=== PATIENT | female | born 1940 | race Caucasian/White ===

== ENCOUNTER → 2016-05-06 | Outpatient (REF) | payer MEDICARE, MEDICAID ==
[~2016-05-06] MED LIST: /LOR25TA PEG; /OMEP10CA OR; /ONDA4TA OR; /PREG50CA PEG; /ROPI25TA PEG; ACET-654 GT; ACET500C PEG; ACET65SU PR; ACET65TA PEG; ALBU0.084 INH; ALBU83IN INH; AMBI10TA PEG; AMLO5TAB OR; AMLO5TAB PEG; AMOX1SUS9 GT; ATIV1TAB10 GT; ATROVENT 0.02% INH; BACI50OI TOP; BEN1.4DI TOP; BUSP10TA PO; CIPRO PEG; CITA20TA2 PEG; ESTR1TAB GT; ESTR1TAB PEG; EUCELOT2 TOP; FERR22EL GT; FLUC10TA PEG; FURO20TA2 PEG; GUAI100S7 GT; HALO1TA GT; HYDR-3716 GT; HYDR-3716 PO; HYDR25TA8 OR; IBUP600T PEG; JEVILIQ32 GT; LANS30CA GT; LANSPOW GT; LEVA250T PO; LISI-538 PO; LISI30TA3 OR; LISI40TA PEG; LORA-376 GT; MAGN400T5 GT; MILKSUS PO; MOM30SS GT; MULTCAP PO; MULTLIQ GT; MULTTAB4 PEG; MYCOSTATIN SSP; MYLI40DR PO; NICO21DI4 TD; NICO21PAT EXT; NICOTINE PATCH TOP; NYST50SS PO; NYSTATIN ORAL PO; OMEP20TA7 OR; PRED20TA PO; PRED5SOL2 PO; PREG50CA PO; PRIN20TA3 GT; PROAAER INH; REGLAN LIQ PEG; REQU0.5T GT; ROPI0.25 PO; SERT-141 GT; SIME180C GT; SIME80TA GT; VENTOLIN NEB INH; VICO5TAB PEG; VITA500T88 GT; VITMTA PO; [UNRECOGNIZED DRUG - CODE] OR; [UNRECOGNIZED DRUG - OTHER]; mycostatin SSP
== END ==
LOC: SKLAB7 13:46
PROVIDERS: ATTEND Family Medicine
DX: N39.0 Urinary tract infection, site not specified (principal)

== ENCOUNTER → 2016-05-10 | Outpatient (REF) | payer MEDICARE, MEDICAID ==
[2016-05-10 08:40] LABS: CALCIUM LEVEL 8.4 MG/DL (8.8-10.2); CREATININE FOR GFR 1.26 MG/DL (0.55-1.02); GLOMERULAR FILTRATION RATE 44.2 (>39)
== END ==
LOC: SKLAB7 05-09 12:20
PROVIDERS: ATTEND Family Medicine
DX: Z79.2 Long term (current) use of antibiotics (principal)

== ENCOUNTER → 2016-06-24 | Outpatient (REF) | payer MEDICARE, MEDICAID ==
[~2016-06-24] MED LIST changes: -SERT-141 GT; +SERT50TA GT
[2016-06-24 09:06] LABS: BASO % 0.3 % (0.0-1.0); EOS # 0.6 K/mm3 (0.0-0.50); EOS % 7.7 % (0.0-3.0); LARGE UNSTAINED CELL # 0.1 K/mm3 (0.0-0.4); LARGE UNSTAINED CELL % 1.3 % (0.0-4.0); LYMPH # 0.8 K/mm3 (1.5-4.5); LYMPH % 10.5 % (24.0-44.0); MEAN CORPUSCULAR HEMOGLOBIN 31.1 pg (27.0-33.0); MEAN CORPUSCULAR HGB CONC 32.7 g/dl (32.0-36.5); MONO # 0.5 K/mm3 (0.0-0.8); NEUTROPHILS # 5.3 K/mm3 (1.8-7.7); NEUTROPHILS % 73.2 % (36.0-66.0); PLATELET COUNT, AUTOMATED 227 k/mm3 (150-450); RED CELL DISTRIBUTION WIDTH 12.8 % (11.5-14.5); WHITE BLOOD COUNT 7.2 K/mm3 (4.0-10.0)
[2016-06-24 09:17] LABS: ALBUMIN 3.3 GM/DL (3.2-5.2); ALBUMIN/GLOBULIN RATIO 0.67 (1.00-1.93); ALKALINE PHOSPHATASE 101 U/L (45-117); ALT/SGPT 20 U/L (12-78); ANION GAP 7 MEQ/L (8-16); AST/SGOT 28 U/L (15-37); BILIRUBIN,TOTAL 0.3 MG/DL (0.2-1.0); BLOOD UREA NITROGEN 29 MG/DL (7-18); CALCIUM LEVEL 8.5 MG/DL (8.8-10.2); CARBON DIOXIDE LEVEL 35 MEQ/L (21-32); CHLORIDE LEVEL 95 MEQ/L (98-107); CHOLESTEROL LEVEL 157 MG/DL (<200); CREATININE FOR GFR 0.79 MG/DL (0.55-1.02); GLOMERULAR FILTRATION RATE > 60.0 (>39); GLUCOSE, FASTING 95 MG/DL (83-110); MAGNESIUM LEVEL 2.4 MG/DL (1.8-2.4); PERCENT SATURATION 16.9 % (13.2-37.4); SODIUM LEVEL 137 MEQ/L (136-145); TOTAL IRON BINDING CAPACITY 366 UG/DL (250-450); TOTAL PROTEIN 8.2 GM/DL (6.4-8.2); TRIGLYCERIDES LEVEL 127 MG/DL (<150)
== END ==
LOC: SKLAB7 07:00
PROVIDERS: ATTEND Family Medicine
DX: D64.9 Anemia, unspecified (principal); R63.4 Abnormal weight loss; E83.40 Disorders of magnesium metabolism, unspecified; E03.9 Hypothyroidism, unspecified; G25.81 Restless legs syndrome; F03.90 Unspecified dementia, unspecified severity, without behavioral disturbance, psychotic disturbance, mood disturbance, and anxiety

== ENCOUNTER 2016-07-03 18:58 | Emergency (ER) | payer MEDICARE, MEDICAID ==
[~2016-07-03] VITALS: Ht 165.1 cm; Wt 56.7 kg
--- NOTE | 2016-07-03 19:53 | REP ---
Clinical: Trauma. Comparison: 06/20/2014. Findings: Age-related atrophy with periventricular leukomalacia and microvascular ischemic changes noted. Hicks-white differentiation is maintained. No acute intracranial mass or mass effect. No extra-axial fluid collection identified. The calvarium is intact. There is a left periorbital and facial traumatic swelling and contusion. A subtle nondisplaced fracture involving the left zygomatic arch cannot be excluded. The left orbit appears symmetric and intact/normal. The sinuses are clear without fluid level. A subtle area of intraparenchymal density in the left frontal lobe (image 15) may be artifactual, but subtle intraparenchymal contusion cannot be excluded. Impression: 1. Left facial and periorbital soft tissue swelling and facial contusion. Nondisplaced left zygomatic arch fracture cannot be excluded. Sinuses are clear. 2. Age-related atrophy and microvascular ischemic changes. A very subtle area of high density in the left frontal lobe is identified on a single image only and while this may reflect artifact secondary to technical factors, a subtle intraparenchymal contusion cannot be excluded. Follow-up examination in 6-12 hours may be warranted. Signed by Mk Garcia MD 07/03/2016 07:45 P
--- NOTE | 2016-07-03 19:56 | REP ---
Clinical: Trauma. Technique: Axial images from the skull base to the thoracic inlet with coronal and sagittal re-formations. Comparison: 06/20/2014. Findings: Age-related osteopenia and moderate to advanced multilevel degenerative changes are appreciated including anterior and posterior osteophytosis, endplate sclerosis and disc space narrowing. There is no evidence for acute fracture / compression injury or subluxation. The posterior elements demonstrate uncovertebral hypertrophy. The spinous processes are intact. The paravertebral soft tissues are normal. Tracheostomy identified. Impression: 1. Age-related osteopenia and moderate to advanced multilevel degenerative disc osteophyte complexes. 2. No acute fracture / compression injury or subluxation. Signed by Mk Garcia MD 07/03/2016 07:48 P
--- NOTE | 2016-07-03 20:01 | REP ---
Clinical: Trauma. Technique: Axial images from the mid skull through the mandible with coronal and sagittal re-formations. Findings: Left facial and left periorbital soft tissue swelling with subtle left facial contusion is appreciated. The bilateral orbits including globes and intraconal contents are symmetric and otherwise normal without pathology or trauma/injury. The sinuses are well aerated and clear without fluid level. The mandible is intact and the bilateral temporomandibular joints appear normal. The nasal bones are intact. A subtle nondisplaced left zygomatic arch fracture cannot be excluded although this may reflect old injury. Impression: 1. Left facial and left periorbital soft tissue swelling and subtle left facial contusion. 2. Subtle acute versus old nondisplaced left zygomatic arch fracture. 3. No other fracture or dislocation noted. Signed by Mk Garcia MD 07/03/2016 07:52 P
--- NOTE | 2016-07-03 20:07 | REP ---
Clinical: Trauma. Comparison: 06/18/2015. Findings: Lung gupta demonstrate diffuse chronic interstitial changes with moderate bronchiectasis, lingular and bibasilar fibroatelectatic changes. No pleural effusion or pneumothorax. No significant consolidation/contusion. Mediastinum demonstrates atherosclerotic changes to the coronary arteries and thoracic aorta without significant cardiomegaly. No pericardial effusion. No thoracic aortic aneurysm. Tracheostomy in satisfactory position. No obvious adenopathy. Musculoskeletal structures demonstrate degenerative changes without rib fracture. The thoracic spine demonstrates osteopenia and advanced degenerative changes. There is a compression fracture at T6 with approximately 50% loss of vertebral body height as well as mild compression deformities of T12 and L1 which are all of indeterminate age. Impression: 1. Chronic interstitial changes with bronchiectasis and fibro atelectatic changes. 2. No obvious acute mediastinal or pleuroparenchymal process. 3. The skeletal structures demonstrate osteopenia and degenerative changes. No rib fracture noted. Compression deformities of T6, T12 and L1 are of indeterminate age. Signed by Mk Garcia MD 07/03/2016 07:59 P
[2016-07-03 20:32] LABS: MEAN CORPUSCULAR HEMOGLOBIN 31.2 pg (27.0-33.0); MEAN CORPUSCULAR HGB CONC 31.6 g/dl (32.0-36.5); MEAN CORPUSCULAR VOLUME 98.5 fl (80.0-96.0); PLATELET COUNT, AUTOMATED 225 k/mm3 (150-450); RED CELL DISTRIBUTION WIDTH 13.1 % (11.5-14.5); WHITE BLOOD COUNT 21.2 K/mm3 (4.0-10.0)
[2016-07-03 21:28] LABS: ANION GAP 5 MEQ/L (8-16); BLOOD UREA NITROGEN 33 MG/DL (7-18); CALCIUM LEVEL 8.9 MG/DL (8.8-10.2); CARBON DIOXIDE LEVEL 36 MEQ/L (21-32); CHLORIDE LEVEL 96 MEQ/L (98-107); CREATININE FOR GFR 0.87 MG/DL (0.55-1.02); GLOMERULAR FILTRATION RATE > 60.0 (>39); GLUCOSE, FASTING 75 MG/DL (83-110); SODIUM LEVEL 137 MEQ/L (136-145)
[2016-07-03 21:42] LABS: BANDS 2 % (< 11); BASOPHILS 0 % (0-4); EOSINOPHILS 2 % (0-5); HYPOCHROMASIA 1+
[2016-07-03 21:43] LABS: STOMATOCYTES 1+
[2016-07-03 23:19] VITALS: O2SAT 97
[2016-07-03 23:53] VITALS: BP 131/67
--- NOTE | 2016-07-04 08:47 | REP ---
Clinical: Trauma. Technique: AP and lateral views of the left humerus. Findings: No acute fracture or dislocation. Age-related changes to the shoulder and elbow joint noted. No subcutaneous emphysema or radiodense foreign body. Impression: No acute fracture or dislocation. Signed by Mk Garcia MD 07/04/2016 08:38 A
--- NOTE | 2016-07-04 20:40 | ED PDOC ---
Post-Departure Follow-Up dr belcher faxed formal report of ct max facial ct for fu gilmarg Tiny Jurado MD Jul 04, 2016 20:40
--- NOTE | 2016-07-04 20:41 | ED PDOC ---
Post-Departure Follow-Up ct head also faxed to dr belcher for fu Tiny Davidson MD Jul 04, 2016 20:41
== END 2016-07-03 23:54 | disposition home or self-care (01) ==
LOC: EDBD 18:58 → M ED 19:30
DX: S00.83XA Contusion of other part of head, initial encounter (principal); S41.002A Unspecified open wound of left shoulder, initial encounter; W07.XXXA Fall from chair, initial encounter; Y92.129 Unspecified place in nursing home as the place of occurrence of the external cause; Y93.89 Activity, other specified; Y99.8 Other external cause status; I10 Essential (primary) hypertension; Z85.819 Personal history of malignant neoplasm of unspecified site of lip, oral cavity, and pharynx; Z92.3 Personal history of irradiation; Z93.0 Tracheostomy status; F41.9 Anxiety disorder, unspecified; Z93.1 Gastrostomy status; Z79.899 Other long term (current) drug therapy; Z79.2 Long term (current) use of antibiotics; Z91.040 Latex allergy status

== ENCOUNTER → 2016-07-04 | Outpatient (REF) | payer MEDICARE, MEDICAID ==
[2016-07-04 05:29] LABS: BASO % 0.2 % (0.0-1.0); EOS # 0.3 K/mm3 (0.0-0.50); EOS % 2.7 % (0.0-3.0); LARGE UNSTAINED CELL # 0.1 K/mm3 (0.0-0.4); LARGE UNSTAINED CELL % 0.9 % (0.0-4.0); LYMPH # 0.8 K/mm3 (1.5-4.5); LYMPH % 6.5 % (24.0-44.0); MEAN CORPUSCULAR HEMOGLOBIN 31.3 pg (27.0-33.0); MEAN CORPUSCULAR HGB CONC 33.3 g/dl (32.0-36.5); MONO # 0.6 K/mm3 (0.0-0.8); MONO % 5.1 % (0.0-5.0); NEUTROPHILS # 10.6 K/mm3 (1.8-7.7); NEUTROPHILS % 84.5 % (36.0-66.0); PLATELET COUNT, AUTOMATED 233 k/mm3 (150-450); WHITE BLOOD COUNT 12.6 K/mm3 (4.0-10.0)
== END ==
LOC: SKLAB7 03:48
PROVIDERS: ATTEND Family Medicine
DX: D64.9 Anemia, unspecified (principal)

== ENCOUNTER → 2016-07-05 | Outpatient (REF) | payer MEDICARE, MEDICAID ==
[2016-07-05 07:47] LABS: MEAN CORPUSCULAR HEMOGLOBIN 31.2 pg (27.0-33.0); MEAN CORPUSCULAR HGB CONC 32.9 g/dl (32.0-36.5); MEAN CORPUSCULAR VOLUME 94.7 fl (80.0-96.0); RED CELL DISTRIBUTION WIDTH 13.1 % (11.5-14.5); WHITE BLOOD COUNT 6.7 K/mm3 (4.0-10.0)
== END ==
LOC: SKLAB7 07:01
PROVIDERS: ATTEND Family Medicine
DX: T81.30XA Disruption of wound, unspecified, initial encounter (principal)

== ENCOUNTER → 2016-07-05 | Outpatient (CLI) | payer MEDICARE, MEDICAID ==
--- NOTE | 2016-07-05 10:50 | REP ---
CT HEAD WITHOUT CONTRAST: HISTORY: Fall. COMPARISON: 07/03/2016 Areas of decreased attenuation are present in the periventricular and subcortical white matter. This represents small vessel ischemic disease. There is no intraparenchymal hemorrhage, mass or midline shift. A small amount of intraventricular and subarachnoid hemorrhage are present. The subarachnoid hemorrhage is decreased compared to the previous study. The intraventricular hemorrhage is increased compared to the previous study. The ventricular system and cortical sulci are dilated consistent with moderate volume loss. There is no extracerebral collection. Minimal mucosal thickening is present in the right mastoid air cells. The visualized sinuses are clear. IMPRESSION: 1. Small vessel ischemic disease. 2. Moderate volume loss. 3. There is a small amount of subarachnoid hemorrhage that is decreased compared to the previous study. 4. Small amount of intraventricular hemorrhage increased compared to the previous study. The results were discussed with Dr. Moody at 10:35 a.m. this date. Signed by Julián Wayne MD 07/05/2016 11:04 A
== END ==
LOC: M RAD 10:16
PROVIDERS: ATTEND Family Medicine
DX: S06.6X0A Traumatic subarachnoid hemorrhage without loss of consciousness, initial encounter (principal); I73.9 Peripheral vascular disease, unspecified; W19.XXXA Unspecified fall, initial encounter; Y92.129 Unspecified place in nursing home as the place of occurrence of the external cause; Y93.9 Activity, unspecified; Y99.9 Unspecified external cause status

== ENCOUNTER → 2016-07-06 | Outpatient (REF) | payer MEDICARE, MEDICAID | LOC: SKLAB7 14:36 | PROVIDERS: ATTEND Family Medicine | DX: Z86.14 Personal history of Methicillin resistant Staphylococcus aureus infection (principal); N39.0 Urinary tract infection, site not specified; Z09 Encounter for follow-up examination after completed treatment for conditions other than malignant neoplasm ==

== ENCOUNTER → 2016-07-06 | Outpatient (REF) | payer MEDICARE, MEDICAID | LOC: SKLAB7 07:00 | PROVIDERS: ATTEND Family Medicine | DX: Z11.9 Encounter for screening for infectious and parasitic diseases, unspecified (principal); Z22.322 Carrier or suspected carrier of Methicillin resistant Staphylococcus aureus ==

== ENCOUNTER 2016-07-12 10:57 | Outpatient (CLI) | payer MEDICARE, MEDICAID ==
[2016-07-12 10:55] VITALS: BP 125/58
[2016-07-12] MEDS ORDERED: ACETAMINOPHEN 325 MG/10.15 ML UDC GT PRN (11:30)
[2016-07-12] MEDS ORDERED: diphenhydrAMINE 12.5MG/5ML ELIXIR UDC GT PRN (11:30)
[2016-07-12 12:30] VITALS: BP 125/86
[2016-07-12 12:45] VITALS: BP 127/60
[2016-07-12 13:56] VITALS: BP 114/62
[2016-07-12 14:45] VITALS: BP 122/70
== END 2016-07-12 18:15 ==
LOC: M OPCLI4PV 10:57 → M MSPAV 10:57 → M OPCLI4PV 18:15
PROVIDERS: ATTEND Family Medicine
DX: D64.9 Anemia, unspecified (principal); S09.8XXA Other specified injuries of head, initial encounter; W19.XXXA Unspecified fall, initial encounter; Y92.122 Bedroom in nursing home as the place of occurrence of the external cause; Y93.9 Activity, unspecified; Y99.8 Other external cause status
CPT/HCPCS: 36415; 36430; 80048; 85027; 86850; 86870; 86900; 86901; 86920; P9016

== ENCOUNTER → 2016-07-12 | Outpatient (REF) | payer MEDICARE, MEDICAID ==
[~2016-07-12] MED LIST changes: +BACI500O74 TOP; -BACI50OI TOP
[2016-07-12 09:16] LABS: MEAN CORPUSCULAR HGB CONC 31.7 g/dl (32.0-36.5); MEAN CORPUSCULAR VOLUME 97.6 fl (80.0-96.0)
[2016-07-12 09:28] LABS: ANION GAP 6 MEQ/L (8-16); BLOOD UREA NITROGEN 32 MG/DL (7-18); CALCIUM LEVEL 8.4 MG/DL (8.8-10.2); CARBON DIOXIDE LEVEL 35 MEQ/L (21-32); CHLORIDE LEVEL 93 MEQ/L (98-107); GLOMERULAR FILTRATION RATE > 60.0 (>39); GLUCOSE, FASTING 111 MG/DL (83-110); POTASSIUM SERUM 4.1 MEQ/L (3.5-5.1); SODIUM LEVEL 134 MEQ/L (136-145)
== END ==
LOC: SKLAB7 09:44
PROVIDERS: ATTEND Family Medicine
DX: S09.8XXA Other specified injuries of head, initial encounter (principal); Y93.9 Activity, unspecified; Y92.122 Bedroom in nursing home as the place of occurrence of the external cause; Y99.8 Other external cause status; W19.XXXA Unspecified fall, initial encounter; X58.XXXA Exposure to other specified factors, initial encounter

== ENCOUNTER → 2016-07-14 | Outpatient (REF) | payer MEDICARE, MEDICAID | LOC: SKLAB7 07:00 | PROVIDERS: ATTEND Family Medicine | DX: E87.71 Transfusion associated circulatory overload (principal) ==

== ENCOUNTER → 2016-07-15 | Outpatient (REF) | payer MEDICARE, MEDICAID ==
[2016-07-15 19:06] LABS: MEAN CORPUSCULAR HEMOGLOBIN 32.4 pg (27.0-33.0); MEAN CORPUSCULAR HGB CONC 33.4 g/dl (32.0-36.5); MEAN CORPUSCULAR VOLUME 97.2 fl (80.0-96.0); RED CELL DISTRIBUTION WIDTH 14.8 % (11.5-14.5); WHITE BLOOD COUNT 12.7 K/mm3 (4.0-10.0)
[2016-07-15 19:29] LABS: ALBUMIN 3.2 GM/DL (3.2-5.2); ALBUMIN/GLOBULIN RATIO 0.86 (1.00-1.93); BILIRUBIN,TOTAL 0.3 MG/DL (0.2-1.0); CALCIUM LEVEL 8.4 MG/DL (8.8-10.2); CREATININE FOR GFR 1.04 MG/DL (0.55-1.02); GLOMERULAR FILTRATION RATE 55.1 (>39); TOTAL PROTEIN 6.9 GM/DL (6.4-8.2)
== END ==
LOC: SKLAB7 12:52
PROVIDERS: ATTEND Family Medicine
DX: R50.9 Fever, unspecified (principal)

== ENCOUNTER → 2016-07-15 | Outpatient (CLI) | payer MEDICARE, MEDICAID ==
--- NOTE | 2016-07-15 18:01 | REP ---
Portable chest, single AP view, patient sitting: Comparisons are the portable chest studies of 06/18/2015, 10/12/2014, 12/13/2012. There is also a comparison chest CT dated 07/03/2016. There is an incomplete inspiratory effort with atelectasis in the lung bases. There is chronic diffuse interstitial coarsening compatible with chronic interstitial lung disease. This is unchanged from prior studies. There is right upper lobe lung nodule. Upon review of the CT scan. This is a calcified granuloma. Cardiac size is difficult to assess because of the incomplete inspiratory effort and obscuration of the left cardiac margin. Impression: Incomplete inspiratory effort. Chronic lung disease with chronic interstitial coarsening. Bibasilar atelectasis. Signed by Laith Peralta MD 07/15/2016 05:53 P
== END ==
LOC: M RAD 17:01
PROVIDERS: ATTEND Family Medicine
DX: J98.4 Other disorders of lung (principal); R09.02 Hypoxemia; R50.9 Fever, unspecified

== ENCOUNTER → 2016-07-23 | Outpatient (REF) | payer MEDICARE, MEDICAID | LOC: SKLAB7 15:12 | PROVIDERS: ATTEND Family Medicine | DX: Z86.14 Personal history of Methicillin resistant Staphylococcus aureus infection (principal) ==

== ENCOUNTER → 2016-08-05 | Outpatient (REF) | payer MEDICARE, MEDICAID ==
[2016-08-05 09:03] LABS: FREE T4 0.74 NG/DL (0.76-1.46)
== END ==
LOC: SKLAB7 07:00
PROVIDERS: ATTEND Family Medicine
DX: D64.9 Anemia, unspecified (principal); R63.4 Abnormal weight loss; E83.40 Disorders of magnesium metabolism, unspecified